=== PATIENT | female | born 1995 ===

== ENCOUNTER 2020-05-09 09:47 | Inpatient (IN) | payer MEDICAID, OTHER, SELFPAY ==
--- NOTE | 2020-05-01 10:51 | History and Physical Report ---
History of Present Illness Date of examination: 05/01/20 History of present illness: Pt is a 24 yo who will be at 39w 1 d on 05/09 when she will present for her RLTCS. PT with h/o C/S x 1, x1. Uncomplicated preg. 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 PT seen in office yesterday and was 2 cm dilated. No regular ctxs since. Past History Past Medical History: no pertinent history Past Surgical History: section (x 1) Social history: no significant social history - Obstetrical History : 4 Para: 2 Hx # Term Pregnancies: 2 Spontaneous Abortions: 1 Number of Living Children: 2 Review of Systems All systems: negative (except HPI) - Physical Exam Abdomen: Positive: normal appearance, soft. Negative: tenderness Results All other labs normal. Assessment and Plan - Patient Problems (1) Previous section Status: Acute Plan to address problem: PT for RLTCS on 05/09. PT fully consented. Pt has a vertical skin incision and pt requests that the same scar be used.
[2020-05-09] MEDS ORDERED: FAMOTIDINE 20 MG/2 ML INJ IV ONE (10:45)
[2020-05-09] MEDS ORDERED: METOCLOPRAMIDE 10 MG/2 ML INJ IV ONE (10:45)
[2020-05-09] MEDS ORDERED: BICITRA ORAL LIQD 30ML PO ONE (10:45)
[2020-05-09] MEDS ORDERED: ceFAZolin/Water 2 GM/20 ML 2 GM/20 ML SYRINGE IV NR (11:00)
[2020-05-09] MEDS ORDERED: OXYTOCIN DRIP 30 UNITS/500 ML BAG IV SCH ×2 (11:00→14:00)
[2020-05-09 11:06] LABS: Basophils % (Auto) 0.5 % (0.0-1.8); Eosinophils % (Auto) 0.3 % (0.0-4.3); Hematocrit 32.1 % (30.3-42.9); Hemoglobin 10.7 gm/dl (10.1-14.3); Lymphocytes # (Auto) 1.3 K/mm3 (1.2-5.4); Lymphocytes % (Auto) 13.9 % (13.4-35.0); Mean Corpuscular HGB Conc 34 % (30-34); Mean Corpuscular Volume 81 fl (79-97); Monocytes # (Auto) 0.7 K/mm3 (0.0-0.8); Monocytes % (Auto) 7.3 % (0.0-7.3); Platelet Count 273 K/mm3 (140-440); Red Blood Count 3.95 M/mm3 (3.65-5.03); Red Cell Distribution Width 14.9 % (13.2-15.2)
[2020-05-09] MEDS: LACTATED RINGERS 1,000 ML IV SCH ×2 (11:11→18:50)
--- NOTE | 2020-05-09 12:13 | Anesthesia Consultation ---
Anesthesia Consult and Med Hx Date of service: 05/09/20 - Airway Anesthetic Teeth Evaluation: Good ROM Head & Neck: Adequate Mental/Hyoid Distance: Adequate Mallampati Class: Class II Intubation Access Assessment: Probably Good - Pulmonary Exam CTA: Yes - Cardiac Exam Cardiac Exam: RRR - Pre-Operative Health Status ASA Pre-Surgery Classification: ASA2 Proposed Anesthetic Plan: Spinal - Pulmonary Hx Asthma: No COPD: No Hx Pneumonia: No - Endocrine Hx End Stage Renal Disease: No - Additional Comments Anesthesia Medical History Comments: Classical incision
--- NOTE | 2020-05-09 12:14 | Anesthesia Day of Surgery ---
Anesthesia Day of Surgery - Day of Surgery Patient Examined: Yes Patient H&P Reviewed: Yes Patient is NPO: Yes
[2020-05-09] MEDS ORDERED: PHENYLEPHRINE/NS 1,000 MCG/10 ML SYRINGE (OR USE) IV ONE (12:22)
--- NOTE | 2020-05-09 13:28 | Procedure Note ---
OB Delivery Note - Delivery Date of Delivery: 05/09/20 Surgeon: GREOGRY MCCRACKEN Estimated blood loss: other (700 cc) - Section Preop diagnosis: repeat Postop diagnosis: same section procedure: section, repeat low transverse Disposition: PACU Complications: none Narrative: Indication:24 yo at 39.1 weeks is here for her repeat low-transverse C- section Findings: Normal uterus, tubes and ovaries. Clear fluid. Tight nuchal cord x1. Procedure: Patient taken to the operating room and prepped and draped in the usual fashion. Patient had a vertical incision in the past so that same skin incision was used per patient request. Incision carried down to the underlying fascia. Fascia was incised and the incision was extended. Rectus fascia dissected off the rectus muscle. Peritoneum identified tented up and entered. Peritoneal incision extended superiorly and inferiorly with good visualization of the bladder. Bladder blade was placed. Uterine incision was made and the incision was extended bilaterally. The baby was delivered from in the typical vertex fashion. Baby bulb suctioned at the incision site and again after delivery. Cord was delayed clamped and cut and handed off to waiting team. The placenta was delivered spontaneously. The uterus was exteriorized and cleared of all clots and debris. Uterine incision closed with 0 Vicryl in a running locked fashion followed by a second imbricating layer of 0 Vicryl. Good hemostasis was noted. Her urine was clear. Uterus tubes and ovaries were returned to the abdominal cavity. Gutters were cleared of all clots and debris and the pelvis was well irrigated. Good hemostasis noted. Interceed placed over the uterine incision and over the lower uterine segment in the midline. Attention was turned to the rectus fascia which was reapproximated with 0 PDS in a running fashion. Subcutaneous tissue was irrigated and reapproximated with 2- 0 Vicryl in a running fashion. Skin was closed with ham. The procedure was concluded at this point and the patient tolerated the procedure well. All instrument and lap counts were correct. - A at 1 minute: 9 at 5 minutes: 9 Gender: Female
[2020-05-09] MEDS ORDERED: KETOROLAC 30 MG/1 ML INJ IV PRN (13:34)
[2020-05-09] MEDS ORDERED: WITCH HAZEL/ GLYCERIN PAD TP PRN (13:34)
[2020-05-09] MEDS ORDERED: LANOLIN/ZINC/DIMETHICONE (LANSINOH) 7 GM TP PRN (13:34)
[2020-05-09] MEDS ORDERED: NALOXONE 0.4 MG/1 ML INJ IV PRN (13:34)
[2020-05-09] MEDS ORDERED: SIMETHICONE 80 MG CHEW TAB PO PRN (13:37)
[2020-05-09] MEDS ORDERED: SENNOSIDES 8.6 MG TAB PO PRN (13:37)
[2020-05-09] MEDS ORDERED: ONDANSETRON 4 MG/2 ML INJ IV PRN (13:37)
[2020-05-09] MEDS ORDERED: MAGNESIUM HYDROXIDE (MOM) ORAL LIQD UDC PO PRN (13:37)
--- NOTE | 2020-05-09 13:54 | Post Anesthesia Evaluation ---
- Post Anesthesia Evaluation Patient Participated: Yes Airway Patent: Yes Stable Respiratory Function: Yes Nausea/Vomiting: No Temp > 96.8F: Yes Pain Manageable: Yes Adequeate Hydration: Yes Anesthesia Complications: No Block Receding Appropriately: Yes
--- NOTE | 2020-05-09 13:55 | Progress Note ---
Regional Anesthesia Block - Regional Anesthesia Block Start Time: 13:15 Stop Time: 13:20 Performed By:: CHAPITO LAUREN Procedure: U/S guided bilateral tap block performed for post-operative pain requested by Dr. Donald. H&P & labs reviewed. Procedure explained, questions answered, consent obtained. Patient in the supine position with ekg, blood pressure cuff and pulse ox on and working in PACU. Timeout performed immediately before start of procedure. Probe placed in the mid-axillary line and the external oblique, internal oblique, and transverse abdominus muscles identified. Skin was cleansed with 0.5% Chlorahexadine and allowed to dry. A 4" 20 G Olivo echogenic needle was advanced in plane until the tip was in the fascial plane between the internal oblique and the transverse abdominus. After negative aspiration 35 ml/side of [30 ml 0.5% Bupivacaine], [50 mcg dexmedetomidine], [8 mg dexamethasone], and [40 ml sterile saline] was injected in 5 ml increments with negative aspiration in between. Patient tolerated procedure well. Alaina ROSA
[2020-05-09] MEDS ORDERED: ONDANSETRON 4 MG/2 ML INJ ONE (14:21)
[2020-05-09] MEDS ORDERED: LACTATED RINGERS 1,000 ML ONE (14:21)
[2020-05-09] MEDS ORDERED: KETOROLAC 30 MG/1 ML INJ ONE (14:21)
[2020-05-09] MEDS ORDERED: BUPIVACAINE/PF (0.5%) 5 MG/1 ML 30 ML VIAL INFILTRATI ONE (14:21)
[2020-05-09] MEDS ORDERED: dexAMETHasone 20 MG/5 ML VIAL ONE (14:21)
[2020-05-10] MEDS: oxyCODONE /ACETAMINOPHEN 5-325MG TAB PO PRN ×3 (06:18→20:41)
[2020-05-10 07:09] LABS: Hematocrit 27.1 % (30.3-42.9); Hemoglobin 9.1 gm/dl (10.1-14.3)
[2020-05-10] MEDS: IBUPROFEN 800 MG TAB PO PRN ×2 (11:00→17:15)
--- NOTE | 2020-05-10 11:31 | Progress Note ---
Assessment and Plan - Patient Problems (1) Status post repeat low transverse section Current Visit: Yes Status: Acute Plan to address problem: Continue routine PP orders Keep dressing clean and dry, remove on POD#2 Anticipate d/c home in 24-48 hrs if stable (2) Anemia Current Visit: Yes Status: Acute Qualifiers: Anemia type: iron deficiency Plan to address problem: Asymptomatic Increase iron rich foods into diet Subjective - Subjective Date of service: 05/10/20 Principal diagnosis: S/P repeat C/S; POD #1 Interval history: See admission H & P; OB operative note and PP progress notes Patient reports: appetite normal, voiding normally, pain well controlled (with medications), flatus, ambulating normally, no bowel movement : doing well, bottle feeding Objective - Vital Signs Latest vital signs: Vital Signs Temp Pulse Resp BP BP Pulse Ox 05/10/20 08:00 97.7 F 66 20 121/68 05/10/20 04:32 98.2 F 74 20 112/68 98 05/10/20 00:19 98.2 F 77 20 108/68 97 05/09/20 20:08 74 20 127/72 98 05/09/20 15:43 97.4 F L 97 H 18 122/78 100 05/09/20 13:30 97.4 F L 15 99 05/09/20 11:42 97 H 100 05/09/20 11:37 92 H 99 05/09/20 11:33 99 H 145/78 05/09/20 11:32 98.6 F 87 99 05/09/20 11:27 91 H 100 Intake and Output 05/09/20 05/10/20 05/10/20 23:59 07:59 15:59 Intake Total 240 360 240 Output Total 1500 Balance 240 -1140 240 Intake: Oral 240 360 240 Output: Urine 1500 Indwelling Catheter 1000 Void 500 Other: Total, Intake Amount 240 120 240 Total, Output Amount 100 - Exam Breasts: Present: normal Cardiovascular: Present: Regular rate Lungs: Present: Normal air movement Abdomen: Present: soft, tenderness Uterus: Present: firm, fundal height below umbilicus (U-1) Extremities: Present: normal Incision: Present: dressed (no shadow drainage or bleeding noted) - Labs Labs: Abnormal lab results 05/10/20 Range/Units 06:57 Hgb 9.1 L (10.1-14.3) gm/dl Hct 27.1 L (30.3-42.9) %
[2020-05-11] MEDS: IBUPROFEN 800 MG TAB PO PRN ×2 (01:22→19:33)
[2020-05-11] MEDS: oxyCODONE /ACETAMINOPHEN 5-325MG TAB PO PRN (09:54)
--- NOTE | 2020-05-11 11:39 | Progress Note ---
Assessment and Plan A: /postop day 2 S/P repeat LTCS. Anemia. P: Encouraged patient to ambulate. Iron supplementation. Continue current management. Subjective - Subjective Date of service: 05/11/20 Principal diagnosis: S/P repeat C/S; POD #2 Patient reports: appetite normal, voiding normally, pain well controlled, flatus, ambulating normally, no dizzy ambulation, no nauseated : doing well Objective - Vital Signs Latest vital signs: Vital Signs Temp Pulse Resp BP BP Pulse Ox 05/11/20 07:35 98.2 F 79 20 139/86 05/11/20 01:13 98.0 F 73 20 123/73 97 05/10/20 16:40 97.5 F L 72 20 121/66 Intake and Output 05/10/20 05/11/20 05/11/20 23:59 07:59 15:59 Intake Total 320 720 Output Total 600 Balance -280 720 Intake: Oral 320 360 Intake, Free Water 360 Output: Urine 600 Void 600 Other: Total, Intake Amount 320 360 Total, Output Amount 600 # Voids Void 1 - Exam Cardiovascular: Present: Regular rate, No murmurs Lungs: Present: Clear to auscultation Abdomen: Present: normal appearance, soft, normal bowel sounds. Absent: distention, tenderness, guarding, rigidity Uterus: Present: normal, firm, fundal height below umbilicus. Absent: bogginess, tenderness Extremities: Present: normal. Absent: tenderness, edema Incision: Present: normal, dry, dressed
[2020-05-12] MEDS ORDERED: FERROUS SULFATE 325 MG TAB PO SCH (10:00)
--- NOTE | 2020-05-12 11:35 | Progress Note ---
Assessment and Plan A: /postop day 3 S/P repeat LTCS. Anemia. P: Discharge patient home today. Discussed with patient /postop discharge instructions and warning signs. Advised patient to continue taking her vitamins and iron supplements at home. Advised patient re: care of incision and activity restrictions. Advised patient to avoid intercourse, lifting, heavy housework, and driving. Advised patient to follow up at her [facility] clinic in 1 week for incision check. Patient voiced understanding of all instructions. Subjective - Subjective Date of service: 05/12/20 Principal diagnosis: S/P repeat C/S; POD #3 Patient reports: appetite normal, voiding normally, pain well controlled, flatus, ambulating normally, no dizzy ambulation, no nauseated Ira: doing well Objective - Vital Signs Latest vital signs: Vital Signs Temp Pulse Resp BP BP Pulse Ox 05/12/20 08:52 98.1 F 61 18 133/71 98 05/11/20 23:41 97.9 F 70 18 132/71 97 05/11/20 15:20 97.7 F 80 20 139/81 Intake and Output 05/11/20 05/12/20 05/12/20 23:59 07:59 15:59 Intake Total 360 240 Balance 360 240 Intake: Oral 240 Intake, Free Water 360 Other: Total, Intake Amount 240 # Voids Void 2 - Exam Cardiovascular: Present: Regular rate, No murmurs Lungs: Present: Clear to auscultation Abdomen: Present: normal appearance, soft, normal bowel sounds. Absent: distention, tenderness, guarding, rigidity Uterus: Present: normal, firm, fundal height below umbilicus. Absent: bogginess, tenderness Extremities: Present: normal. Absent: tenderness Incision: Present: normal, dry, intact
--- NOTE | 2020-05-12 11:38 | Discharge Summary ---
Providers - Providers Date of Admission: 05/09/20 09:47 Date of discharge: 05/12/20 Attending physician: CHRISTEN BLOUNT JR, MD Primary care physician: CHRISTEN BLOUNT JR, MD Hospitalization Reason for admission: section Delivery: Procedure: section Incision: normal, dry, intact Other procedures: none complications: none Discharge diagnosis: IUP at term delivered baby: female Pertinent studies: Labs Hospital course: Stable hospital course Condition at discharge: Good Disposition: DC-01 TO HOME OR SELFCARE - Discharge Diagnoses (1) Term delivered Status: Acute (2) Anemia Status: Acute Qualifiers: Anemia type: iron deficiency Plan - Discharge Medications Prescriptions: Ibuprofen [Motrin 800 MG tab] 800 mg PO Q8H PRN #30 tablet PRN Reason: Pain, Mild (1-3) oxyCODONE /ACETAMINOPHEN [Percocet 5/325 mg] 1 tab PO Q6H PRN #30 tablet PRN Reason: Pain, Moderate (4-6) - Provider Discharge Summary Activity: routine, no sex for 6 weeks, no heavy lifting 4 weeks, no strenuous exercise Diet: routine Instructions: routine Additional instructions: Continue taking your vitamins and iron supplements at home. Follow up at [facility] in 1 week. Call your doctor immediately for: * Fever > 100.5 * Heavy vaginal bleeding ( >1 pad per hour) * Severe persistent headache * Shortness of breath * Reddened, hot, painful area to leg or breast * Drainage or odor from incision. * Keep incision clean and dry at all times and follow doctor's instructions regarding bathing/showering - Follow up plan Follow up: GREGORY MCCRACKEN MD [Staff Physician] - 7 Days Forms: [facility] Discharge Summary, Discharge Signature Page
[2020-05-12 14:15] VITALS: BP 138/80
== END 2020-05-12 14:35 | disposition home or self-care (01) | DRG 788 ==
LOC: APU 09:47 → OB 14:27
PROVIDERS: ADMIT Obstetrics & Gynecology; ATTEND Obstetrics & Gynecology
PROC: 10D00Z1 Extraction of Products of Conception, Low, Open Approach (ICD-10-PCS; principal; 2020-05-09)
DX: O34.211 Maternal care for low transverse scar from previous cesarean delivery (principal); Z37.0 Single live birth; Z3A.39 39 weeks gestation of pregnancy; Z20.828 Contact with and (suspected) exposure to other viral communicable diseases; O90.81 Anemia of the puerperium; D64.9 Anemia, unspecified
CPT/HCPCS: 36415; 59025; 85014; 85018; 85025; 86592; 86850; 86900; 86901; 96360; 96361; G0378; J1100; J1885; J2370; J2405; J2765; J3490; J7120; U0003